=== PATIENT | female | born 1995 | race American Indian/Alaskan Native ===

== ENCOUNTER 2021-01-16 21:58 | Emergency (ER) | payer MEDICAID, OTHER ==
[2021-01-16] MEDS ORDERED: LORazepam 2 MG/ML VIAL IV ONE (22:16)
[2021-01-16] MEDS ORDERED: levETIRAcetam 1000 MG/NS 0.75% 1,000 MG/100 ML BAG IV ONE (22:16)
[2021-01-16] MEDS ORDERED: ONDANSETRON 4 MG/2 ML INJ IV ONE (22:17)
--- NOTE | 2021-01-16 22:21 | Emergency Department Report ---
ED Seizure HPI - General Chief Complaint: Seizure Stated Complaint: SEIZURE Time Seen by Provider: 01/16/21 22:05 Source: patient Mode of arrival: Stretcher Limitations: No Limitations - History of Present Illness Initial Comments: Chief complaint: Seizure HPI: This is a 25-year-old female with history of previous seizure disorder who presents with 5 seizures today. Seizures were witnessed by her boyfriend. She has bit her tongue. She also has bit the inner portion of her lower lip. She denies any pain at this time. She required Lamictal during her last year. She first began having seizures in the first trimester of recent pregnan cy. She has not taken Lamictal since her delivery of her child in May 2020. She has been in normal state of health. MD Complaint: seizure -: Sudden, This morning Description of Episode: loss of consciousness, tonic-clonic movement Witnessed:: Yes Trauma: Yes (Tongue and lip biting) Seizure History: known seizure disorder Place: home Possible Precipitating Event: none Associated Symptoms: tongue injury, other (Lip injury) Treatments Prior to Arrival: other (EMS report) - Related Data Previous Rx's Medication Instructions Recorded Last Taken Type levETIRAcetam [Keppra TAB] 500 mg PO BID #60 tablet 01/16/21 Unknown Rx Allergies Allergy/AdvReac Type Severity Reaction Status Date / Time No Known Allergies Allergy Unverified 04/27/20 10:48 ED Review of Systems ROS: Stated complaint: SEIZURE Other details as noted in HPI Comment: All other systems reviewed and negative Constitutional: denies: fever, malaise Respiratory: denies: cough, shortness of breath Gastrointestinal: denies: abdominal pain, nausea, vomiting Neurological: denies: headache ED Past Medical Hx - Past Medical History Previous Medical History?: Yes Hx Hypertension: No Hx Diabetes: No Hx Deep Vein Thrombosis: No Hx Renal Disease: No Hx Sickle Cell Disease: No Hx Seizures: Yes (2019) Hx Asthma: Yes (athletic induced, 2 yr ago) Hx HIV: No - Surgical History Past Surgical History?: No Additional Surgical History: eclampsia - Social History Smoking Status: Former Smoker - Medications Home Medications: Home Medications Medication Instructions Recorded Confirmed Last Taken Type levETIRAcetam [Keppra TAB] 500 mg PO BID #60 tablet 01/16/21 Unknown Rx ED Physical Exam - General Limitations: No Limitations General appearance: alert, in no apparent distress - Head Head exam: Present: atraumatic, normocephalic - Eye Eye exam: Present: normal appearance - ENT ENT exam: Present: mucous membranes moist, other (Superficial tongue hematoma anterior right, superficial skin avulsion and hematoma inner mucosa left lower lip) - Neck Neck exam: Present: normal inspection, full ROM - Respiratory Respiratory exam: Present: normal lung sounds bilaterally. Absent: respiratory distress, wheezes, rales, rhonchi - Cardiovascular Cardiovascular Exam: Present: regular rate, normal rhythm, normal heart sounds. Absent: systolic murmur, diastolic murmur, rubs, gallop - GI/Abdominal GI/Abdominal exam: Present: soft, normal bowel sounds. Absent: distended, tenderness, guarding, rebound - Extremities Exam Extremities exam: Present: normal inspection - Neurological Exam Neurological exam: Present: alert, oriented X3 - Psychiatric Psychiatric exam: Present: normal affect, normal mood - Skin Skin exam: Present: warm, dry, intact, normal color. Absent: rash ED Course Vital Signs 01/16/21 22:10 Temperature 98.2 F Pulse Rate 94 H Respiratory 16 Rate Blood Pressure 138/83 [Left] O2 Sat by Pulse 86 Oximetry ED Medical Decision Making - Lab Data Result diagrams: 01/16/21 22:41 01/16/21 22:41 Laboratory Results - last 24 hr 01/16/21 01/16/21 01/16/21 22:41 22:41 22:41 WBC 16.4 H RBC 4.05 Hgb 12.4 Hct 37.6 MCV 93 MCH 31 MCHC 33 RDW 14.0 Plt Count 256 Lymph % (Auto) 6.6 L Walsh % (Auto) 9.1 H Eos % (Auto) 0.0 Baso % (Auto) 0.0 Lymph # (Auto) 1.1 L Walsh # (Auto) 1.5 H Eos # (Auto) 0.0 Baso # (Auto) 0.0 Seg Neutrophils % 84.3 H Seg Neutrophils # 13.8 H Sodium 134 L Potassium 4.9 Chloride 102.6 Carbon Dioxide 17 L Anion Gap 19 BUN 13 Creatinine 1.3 H Estimated GFR 60 BUN/Creatinine Ratio 10 Glucose 100 Calcium 8.8 Total Bilirubin 0.30 AST 30 ALT 15 Alkaline Phosphatase 83 Total Protein 6.8 Albumin 4.2 Albumin/Globulin Ratio 1.6 HCG, Qual Negative - Medical Decision Making Seizure: History of previous seizure disorder while . Patient required antiepileptic Lamictal while she was . She stopped taking this medication in May as a delivery of her child. Patient had reported 5 generalized tonic-clonic seizures witnessed by her . Injuries include tongue superficial laceration and skin avulsion of the inner lip. Patient received IV Keppra load. I have prescribed Keppra. I referred patient to her personal prior seizure specialist as well as neurologist associated with [facility]. Patient understands that she is not allowed to drive until she is given clearance by seizure specialist. She also is encouraged to avoid swimming, working at heights or near heated surfaces without supervision Work-up remarkable for elevated white count. Patient does not have signs or symptoms of infection. Suspect the marginalization. Increase anion gap and decreased bicarbonate reflective of suspected lactic acidosis in the setting of 5 seizures. Patient appears well nontoxic. hCG is negative. Critical care attestation.: If time is entered above; I have spent that time in minutes in the direct care of this critically ill patient, excluding procedure time. ED Disposition Clinical Impression: Seizure, History of seizure disorder Disposition: DC-01 TO HOME OR SELFCARE Is pt being admited?: No Does the pt Need Aspirin: No Condition: Stable Instructions: Epilepsy, [id number] Prescriptions: levETIRAcetam [Keppra TAB] 500 mg PO BID #60 tablet Referrals: DIANE WHITTINGTON MD [Referring] - 3-5 Days
[2021-01-16 23:10] LABS: Hematocrit 37.6 % (30.3-42.9); Hemoglobin 12.4 gm/dl (10.1-14.3); Lymphocytes # (Auto) 1.1 K/mm3 (1.2-5.4); Lymphocytes % (Auto) 6.6 % (13.4-35.0); Mean Corpuscular HGB Conc 33 % (30-34); Mean Corpuscular Volume 93 fl (79-97); Monocytes # (Auto) 1.5 K/mm3 (0.0-0.8); Monocytes % (Auto) 9.1 % (0.0-7.3); Platelet Count 256 K/mm3 (140-440); Red Blood Count 4.05 M/mm3 (3.65-5.03)
[2021-01-16 23:25] LABS: Albumin 4.2 g/dL (3.9-5); Calcium 8.8 mg/dL (8.4-10.2)
[2021-01-17 00:34] VITALS: BP 110/52
== END 2021-01-17 00:52 | disposition home or self-care (01) ==
LOC: ED 21:58
DX: G40.909 Epilepsy, unspecified, not intractable, without status epilepticus (principal); J45.909 Unspecified asthma, uncomplicated; Z87.891 Personal history of nicotine dependence; Z79.899 Other long term (current) drug therapy
CPT/HCPCS: 36415; 80053; 84703; 85025; 96365; 96375; 99283; J1953; J2060; J2405